=== PATIENT | male | born 1965 | race Caucasian/White ===

== ENCOUNTER 2017-08-27 13:08 | Emergency (ER) | payer BC ==
[~2017-08-27] VITALS: Ht 180.3 cm; Wt 86.2 kg
[~2017-08-27 13:08] MED LIST: AMLO5TAB2; LINA5TAB; METF500T6; RAMI2.5C
[2017-08-27] MEDS ORDERED: ESOM20CA PO (13:27)
[2017-08-27] MEDS ORDERED: FLUORESCEIN SODIUM 1 MG STRIP OP ONE (13:30)
[2017-08-27] MEDS ORDERED: FLUORESCEIN SODIUM 1 MG STRIP ONE (13:33)
[2017-08-27] MEDS ORDERED: SULFACETAMIDE SOD 10% OPHT DR 15 ML BOTTLE ONE (13:41)
[2017-08-27] MEDS ORDERED: SULFACETAMIDE SOD 10% OPHT DR 15 ML BOTTLE OP ONE (13:45)
--- NOTE | 2017-08-27 13:45 | NUR ---
PATIENT WAS SEEN BY MD FOR EYE EVALUATION. MEDICATION ADMINISTERED ORDERED. EYE PATCH PLACED INSTRUCTED BY MD. DC AND FOLLOW UP INSTRUCTIONS GIVEN AND EXPLAINED TO PATIENT WHO STATES HE UNDERSTANDS ALL INSTRUCTIONS.
== END 2017-08-27 13:52 | disposition home or self-care (01) ==
LOC: ER 13:09
DX: S05.01XA Injury of conjunctiva and corneal abrasion without foreign body, right eye, initial encounter (principal); I10 Essential (primary) hypertension; E11.9 Type 2 diabetes mellitus without complications; F17.210 Nicotine dependence, cigarettes, uncomplicated; F12.10 Cannabis abuse, uncomplicated; Z79.84 Long term (current) use of oral hypoglycemic drugs; Z79.899 Other long term (current) drug therapy; X58.XXXA Exposure to other specified factors, initial encounter; Y93.89 Activity, other specified; Y92.89 Other specified places as the place of occurrence of the external cause; Y99.8 Other external cause status
CPT/HCPCS: A4663

== ENCOUNTER 2017-12-22 04:18 | Inpatient (IN) | payer BC ==
[~2017-12-22] VITALS: Ht 180.3 cm; Wt 91.2 kg
[~2017-12-22 04:18] MED LIST changes: -AMLO5TAB2; +AMLO5TAB2 PO; +ESOM20CA PO; -LINA5TAB; +LINA5TAB PO; -METF500T6; +METF500T6 PO; -RAMI2.5C; +RAMI2.5C PO
--- NOTE | 2017-12-22 04:28 | NUR ---
Dr. Dc at bedside for MSE.
[2017-12-22] MEDS ORDERED: VANCOMYCIN IV 1,000 MG in IV DEXTROSE 5% 250 ML IV ONE (04:45)
[2017-12-22] MEDS ORDERED: PIPERACILLIN SODIUM/TAZOBACTAM 3.375 G in IV DEXTROSE 5% 50 ML IV ONE (04:45)
[2017-12-22] MEDS ORDERED: IV NORMAL SALINE 1000 ML BAG IV ONE (04:45)
[2017-12-22] MEDS ORDERED: PIPERACILLIN/TAZOBACTAM/D5W 50 ML IV ONE (04:53)
[2017-12-22] MEDS ORDERED: VANCOMYCIN IV 200 ML ONE (04:53)
--- NOTE | 2017-12-22 04:53 | NUR ---
Xray at bedside.
[2017-12-22 05:03] LABS: CREATININE 1.7 mg/dL (0.6-1.3); POTASSIUM 3.8 mmol/L (3.5-5.1)
[2017-12-22 05:04] LABS: BASOPHILS % (AUTO) 0.2 % (0.0-2.0); EOSINOPHILS # (AUTO) 0.1 K/uL (0.0-0.7); HEMATOCRIT 40.1 % (36.7-47.1); HEMOGLOBIN 13.7 g/dL (12.5-16.3); LYMPHOCYTES # (AUTO) 1.3 K/uL (20.0-40.0); LYMPHOCYTES % (AUTO) 15.2 % (20.5-51.5); MEAN CORPUSCULAR HGB CONC 34 g/dL (32.5-36.3); MEAN CORPUSCULAR VOLUME 79.1 fL (73.0-96.2); MONOCYTES # (AUTO) 0.4 K/uL (2.0-10.0); MONOCYTES % (AUTO) 4.3 % (0.0-11.0); NEUTROPHILS % (AUTO) 79.3 % (38.5-71.5); PLATELET COUNT (AUTO) 179 K/uL (152-348); RED BLOOD CELL COUNT(AUTO) 5.06 MIL/uL (4.06-5.63); WHITE BLOOD COUNT (AUTO) 8.8 K/uL (3.6-10.2)
[2017-12-22 05:09] LABS: BILIRUBIN,DIRECT 0.2 mg/dL (0.0-0.2); BILIRUBIN,TOTAL 0.7 mg/dL (0.2-1.0); TOTAL PROTEIN, SERUM 7.4 g/dL (6.4-8.2)
--- NOTE | 2017-12-22 05:27 | NUR ---
Called [facility] to page cata Martínez.
--- NOTE | 2017-12-22 05:32 | NUR ---
Ultrasound at bedside
[2017-12-22] MEDS ORDERED: IV NS 1000 ML 1,000 ML IV PRN ×2 (06:06→10:19)
--- NOTE | 2017-12-22 06:10 | NUR ---
Pt. admitted to Med/Surg , under care of Marcos Martínez. Diagnosis: Cellulitis of Left Lower Extremity. Belongs List completed. Report given to Chelsea DUCKWORTH.
[2017-12-22] MEDS ORDERED: HYDROCODONE/APAP 5-325MG TABLET PO PRN (06:15)
[2017-12-22] MEDS ORDERED: MORPHINE SULFATE 2 MG/1 ML DISP.SYRIN IV PRN (06:15)
[2017-12-22] MEDS ORDERED: DEXTROSE 50% 50 ML DISP.SYRIN IV PRN (06:15)
[2017-12-22] MEDS ORDERED: INSULIN REGULAR, HUMAN 300 UNIT/3 ML VIAL SQ PRN (06:15)
[2017-12-22] MEDS ORDERED: MAGNESIUM HYDROXIDE 30 ML LIQUID UDC PO PRN (06:15)
[2017-12-22] MEDS ORDERED: ACETAMINOPHEN 325 MG TABLET PO PRN (06:15)
[2017-12-22] MEDS ORDERED: ONDANSETRON 4 MG/2 ML VIAL IV PRN (06:15)
[2017-12-22] MEDS ORDERED: Z GUARD REMEDY PASTE 57 GM TUBE TOP PRN (06:15)
--- NOTE | 2017-12-22 06:46 | NUR ---
IN FROM ER VIA [facility], 52 YEAR OLD MALE ADMITTED TO [facility] WITH DX OF CELLULITIS OF THE LEFT LOWER EXTREMITY. AAOX4, NO SOB, DENIES ANY CHEST PAIN. IV SITE ON RAC, PATENT AND INTACT. ROUTINE ADMISSION DONE. PLAN OF CARE INITIATED, SAFETY MEASURES INITIATED, CALL FERMIN WITHIN REACH.
[2017-12-22] MEDS ORDERED: PANTOPRAZOLE SODIUM 40 MG TABLET.DR PO SCH (07:00)
--- NOTE | 2017-12-22 07:00 | NUR ---
BEGINNING OF SHIFT NEW ADMIT. PT REFUSED TO GO THROUGH HIS BELONGINGS, PT STATED "I ALREADY WENT THROUGH THIS, HOW MANY TIMES AM I GOING TO GO THROUGH THIS AGAIN?". EXPLAINED/DISCUSSED WITH PATIENT REGARDING HOSPITAL POLICY. PT STILL REFUSED BELONGINGS CHECK, WITNESSED BY LEAD HOUSEKEEPER AND BARGE WORKER RN.
[2017-12-22] MEDS: BLOOD SUGAR DIAGNOSTIC 1 EACH STRIP VI SCH ×3 (08:21→16:33)
[2017-12-22] MEDS ORDERED: RAMIPRIL 1.25 MG CAPSULE PO SCH (09:00)
[2017-12-22] MEDS ORDERED: ENOXAPARIN SODIUM 40 MG/0.4 ML DISP.SYRIN SQ SCH (09:00)
[2017-12-22] MEDS ORDERED: AMLODIPINE 5 MG TABLET PO SCH (09:00)
[2017-12-22] MEDS ORDERED: RAMIPRIL 2.5 MG CAPSULE PO SCH (09:00)
--- NOTE | 2017-12-22 10:58 | NUR ---
Clinical Pharmacy Note: Vancomycin Dosing per Pharmacy Subjective: Vancomycin IV to start on this 52 yo male patient for cellulitis. 1st dose of vanco 1gm IVPB x1 today at 0500 in ED Objective: BUN 26/Scr 1.7 WBC 8.8 Temperature 98.2 ht 180 cm wt 88 kg Assessment/Plan: Will start vancomycin 1500mg IVPB Q20hr for a predicted vancomycin steady state trough level of 15.8 mcg/ml. 1st dose will be due today at 2000. Will draw a vancomycin trough level prior to the 4th dose of vancomycin (not ordered yet). Will monitor renal function and adjust vancomycin dose, if needed, should renal function change significantly. Will follow daily.
[2017-12-22 11:58] VITALS: BP 97/55
[2017-12-22] MEDS ORDERED: CEFTRIAXONE 1 G in IV DEXTROSE 5% 50 ML IV SCH (13:00)
[2017-12-22] MEDS ORDERED: MEROPENEM 0.5 G in IV NORMAL SALINE 50 ML IV SCH (14:00)
[2017-12-22 16:08] LABS: *CREATININE,URINE 89.1 mg/dL (30-125); *URINE TOTAL PROTEIN RANDOM 21.7 mg/dL (<150/24HR)
[2017-12-22 16:11] VITALS: BP 126/78
[2017-12-22 16:35] LABS: *BILIRUBIN,URIN NEGATIVE (NEGATIVE); *BLOOD, URINE NEGATIVE (NEGATIVE); *CLARITY,URINE CLEAR (CLEAR); *COLOR,URINE YELLOW (YELLOW); *KETONES,URINE NEGATIVE (NEGATIVE); *PROTEIN,URINE NEGATIVE (NEGATIVE); LEUKOCYTE ESTERASE ,URINE NEGATIVE (NEGATIVE); NITRITE, URINE NEGATIVE (NEGATIVE); UGLUCOSE NEGATIVE (NEGATIVE)
[2017-12-22 17:56] LABS: RBC,URINE 0-3 /HPF (0-3); WBC,URINE 0-3 /HPF (0-3)
--- NOTE | 2017-12-22 18:15 | NUR ---
PT ALERT, IN NO DISTRESS, NO C/O OF SOB. PT C/O OF DISCOMFORT OF LEFT LOWER EXTREMITY WHEN AMBULATING. PT REFUSES PAIN MEDICATION, PT TEACHING DONE, DISCUSSED RISKS/BENEFITS OF TAKING/NOT TAKING PAIN MEDICATION, PT VERBALIZED UNDERSTANDING. LEFT LOWER EXTREMITY ELEVATED AT ALL TIMES. FAMILY AT BEDSIDE.
--- NOTE | 2017-12-22 18:26 | NUR ---
IVF RUNNING, NO INFILTRATION NOTED. IV ANTIBIOTICS ADMINISTERED ORDERED, NO ADVERSE REACTION NOTED. SAFETY MEASURES IN PLACE.
--- NOTE | 2017-12-22 18:40 | NUR ---
FOUND PATIENT'S IV PULLED OUT, BED STAINED WITH MINIMAL BLOOD. PATIENT ASKED ME TO LEAVE THE ROOM AND GIVE HIM "A MINUTE" HE WANTS TO GO TO THE BATHROOM TO URINATE.
--- NOTE | 2017-12-22 18:45 | NUR ---
CHANGED PATIENT'S BEDDINGS/LINEN, PT IN THE BATHROOM.
--- NOTE | 2017-12-22 19:00 | NUR ---
SHIFT REPORT FROM AM NURSE RECEIVED, PT HAS BEEN IN THE REST ROOM SINCE 1845H, PT BELONGING LIST HAS NOT BEEN COMPLETED SINCE THIS MORNING D/T PT'S REFUSAL. NURSING ROUNDS MADE AND PT STILL INSIDE RESTROOM, NO COMPLAINTS MADE, REQUESTING FOR NURSING STAFF TO COME BACK AT A LATER TIME.
--- NOTE | 2017-12-22 19:00 | NUR ---
PATIENT STILL IN THE BATHROOM, WILL ENDORSE TO BARREL STAVE INSPECTOR RN.
--- NOTE | 2017-12-22 19:30 | NUR ---
DUE MEDS TO BE GIVEN BUT PT REMAINS IN THE RESTROOM, UNABLE TO TAKE VITAL SIGNS.
--- NOTE | 2017-12-22 19:45 | NUR ---
CHARGE NURSE NOTIFIED REGARDING PT'S ACTIONS. NURSING RETAIL SALES VITAMIN CONSULTANT MADE AWARE OF ABOVE. - NURSING STAFFS VISITED PT'S ROOM, DOOR CLOSED, KNOCKED AND RETAIL SALES VITAMIN CONSULTANT FOUND PT INSIDE RESTROOM SMOKING UNKNOWN SUBSTANCE. NEEDLES AND SYRINGES WITH BLACK CONTENTS SEEN ON PT'S HAND. INSTRUCTED PT REGARDING HOSPITAL POLICY AND INAPPROPRIATE ACTIVITY. PT VOLUNTARILY GRABBED HIS BELONGINGS AND DECIDED TO LEAVE THE HOSPITAL. ARM BAND REMOVED AND LEFT HOSPITAL AMBULATORY. Addendum: 12/22/17 at 2127 by DOMI URIAS RN PT'S FATHER NOTIFIED VIA CALL BY CHARGE NURSE ABOUT PT'S LEAVING [place].
[2017-12-22] MEDS ORDERED: VANCOMYCIN IV 1,500 MG in IV DEXTROSE 5% 500 ML IV SCH (20:00)
[2017-12-22] MEDS ORDERED: INSULIN GLARGINE,HUM 300 UNITS/3 ML CARTRIDGE SQ SCH (21:00)
[2017-12-22] MEDS ORDERED: LACTOBACILLUS RHAMNOSUS GG 1 EACH CAPSULE PO SCH (21:00)
== END 2017-12-22 20:00 | disposition left against medical advice (07) | DRG 602 ==
LOC: ER 04:25 → MED 06:00
PROVIDERS: ADMIT Hospitalist
DX: L03.116 Cellulitis of left lower limb (principal); N17.0 Acute kidney failure with tubular necrosis; J98.11 Atelectasis; G89.29 Other chronic pain; Z79.84 Long term (current) use of oral hypoglycemic drugs; E11.22 Type 2 diabetes mellitus with diabetic chronic kidney disease; I12.9 Hypertensive chronic kidney disease with stage 1 through stage 4 chronic kidney disease, or unspecified chronic kidney disease; N18.9 Chronic kidney disease, unspecified; M51.27 Other intervertebral disc displacement, lumbosacral region; T46.4X5A Adverse effect of angiotensin-converting-enzyme inhibitors, initial encounter; Y92.009 Unspecified place in unspecified non-institutional (private) residence as the place of occurrence of the external cause; I95.9 Hypotension, unspecified; Z79.899 Other long term (current) drug therapy
CPT/HCPCS: 36415; 70030-TC; 71045; 83605; 84156; 84300; 85025; 85730; 87040; 87086; 93005; A4663; J0696; J1650; J1815; J2185; J2543; J3370; J3490; J7030; J7060